=== PATIENT | female | born 1995 | race Caucasian/White ===

== ENCOUNTER 2020-01-23 17:31 | Emergency (ER) | payer OTHER ==
[~2020-01-23] VITALS: Ht 160 cm; Wt 64.0 kg
[2020-01-23 18:05] VITALS: Ht 160 cm; Wt 64.0 kg
[2020-01-23 20:38] VITALS: BP 133/90
== END 2020-01-23 20:38 | disposition home or self-care (01) ==
LOC: ED 17:31
DX: L73.9 Follicular disorder, unspecified (principal); Z88.1 Allergy status to other antibiotic agents